=== PATIENT | male | born 2000 | race Caucasian/White ===

== ENCOUNTER 2022-02-23 02:35 | Emergency (ER) | payer OTHER ==
[~2022-02-23] VITALS: Ht 175.3 cm; Wt 81.6 kg
[2022-02-23 02:35] VITALS: BP 144/80
--- NOTE | 2022-02-23 02:35 | NUR ---
TO [facility] [place] [facility] [employer] FOR PREBOOK
--- NOTE | 2022-02-23 02:35 | NUR ---
PT [place] [facility], PREBOOK. TAKEN TO CHAIR
[2022-02-23 03:00] VITALS: BP 144/80
--- NOTE | 2022-02-23 03:00 | NUR ---
PATIENT [facility] [facility]. PATIENT EXAMINED BY DR. GARCIA. PATIENT MEDICALLY CLEARED AND RELEASED IN CUSTODY IN STABLE CONDITION. ORIGINAL PRE-BOOK FORM GIVEN TO OFFICER [facility] #[id number].
== END 2022-02-23 03:00 ==
LOC: MED 02:35
DX: F10.129 Alcohol abuse with intoxication, unspecified (principal); Y90.9 Presence of alcohol in blood, level not specified; V49.88XA Car occupant (driver) (passenger) injured in other specified transport accidents, initial encounter; Y93.89 Activity, other specified; Y92.89 Other specified places as the place of occurrence of the external cause; Y99.8 Other external cause status
CPT/HCPCS: 99283